=== PATIENT | female | born 1995 | race Asian ===

== ENCOUNTER 2019-08-08 16:15 | Emergency (ER) | payer OTHER ==
--- NOTE | 2019-08-08 16:36 | ED ---
HPI Febrile Illness - HPI Summary HPI Summary: 24 y/o female presented to [facility] for a febrile illness present after a return to the [place] after [place] vacation in [place]. She spent her vacation in multiple cities in [place] before spending time in [facility] from 07/16/19-07/28/19, where she was not in contact with anyone known to be sick. She returned on 07/29/19 to [facility] airport, after which she took a bus from [facility] to [place]. She then quarantined herself in her room from 07/29/19-08/01/19, during which time she experienced no symptoms. She went to classes from 08/02/19-08/05/19, and has recently been experiencing soft, yellow stools. She has also been experiencing chest congestion since yesterday that worsened today, and fever starting today of unknown temperature. She denies nausea, vomiting, diarrhea, chest pain, shortness of breath, rhinorrhea, sore throat, and abdominal pain. She is here today after a request from [place] to be seen in the ER. LNMP was 07/13/19. - History of Current Complaint Chief Complaint: EDFluSymptoms Time Seen by Provider: 08/08/19 16:19 Hx Obtained From: Patient Onset/Duration: Started Days Ago, Still Present Current Severity: None Pain Intensity: 0 Pain Scale Used: 0-10 Numeric Associated Signs and Symptoms: Other: - fever; soft, yellow stools; chest congestion - Allergy/Home Medications Allergies/Adverse Reactions: Allergies Allergy/AdvReac Type Severity Reaction Status Date / Time No Known Allergies Allergy Verified 08/08/19 16:28 Home Medications: Home Medications NK [No Home Medications Reported] 08/08/19 [History Confirmed 08/08/19] PMH/Surg Hx/FS Hx/Imm Hx Sensory History: Denies: Hx Legally Blind, Hx Deafness Opthamlomology History: Denies: Hx Legally Blind EENT History: Denies: Hx Deafness Infectious Disease History: No Infectious Disease History: Reports: Traveled Outside the [place] in Last 30 Days - [facility] - Family History Known Family History: Negative: Hypertension, Diabetes - Social History Alcohol Use: None Substance Use Type: Reports: None Smoking Status (MU): Never Smoked Tobacco Review of Systems Positive: Fever Negative: Sore Throat, Nasal Discharge Negative: Chest Pain Respiratory: Other - chest congestion Negative: Shortness Of Breath Positive: Other - soft stools. Negative: Abdominal Pain, Vomiting, Diarrhea, Nausea All Other Systems Reviewed And Are Negative: Yes Physical Exam - Summary Physical Exam Summary: VITAL SIGNS: Reviewed. GENERAL: Patient is a well-developed and nourished female who is lying comfortable in the stretcher. Patient is not in any acute respiratory distress. HEAD AND FACE: No signs of trauma. No ecchymosis, hematomas or skull depressions. No sinus tenderness. EYES: PERRLA, EOMI x 2, No injected conjunctiva, no nystagmus. EARS: Hearing grossly intact. Ear canals and tympanic membranes are within normal limits. MOUTH: Oropharynx within normal limits. NECK: Supple, trachea is midline, no adenopathy, no JVD, no carotid bruit, no c- spine tenderness, neck with full ROM. CHEST: Symmetric, no tenderness at palpation. LUNGS: Clear to auscultation bilaterally. No wheezing or crackles. CVS: Regular rate and rhythm, S1 and S2 present, no murmurs or gallops appreciated. ABDOMEN: Soft, non-tender. No signs of distention. No rebound, no guarding, and no masses palpated. Bowel sounds are normal. EXTREMITIES: FROM in all major joints, no edema, no cyanosis or clubbing. NEURO: Alert and oriented x 3. No acute neurological deficits. Speech is normal and follows commands. SKIN: Dry and warm. Triage Information Reviewed: Yes Vital Signs On Initial Exam: Initial Vitals Temp Pulse Resp BP Pulse Ox 99.6 F 96 16 145/93 99 08/08/19 16:21 08/08/19 16:21 08/08/19 16:21 08/08/19 16:21 08/08/19 16:21 Vital Signs Reviewed: Yes Procedures - Sedation Patient Received Moderate/Deep Sedation with Procedure: No Diagnostics - Vital Signs Vital Signs Temp Pulse Resp BP Pulse Ox 08/08/19 16: 99.6 F 96 16 145/93 99 - Laboratory Result Diagrams: 08/08/19 Unknown 08/08/19 Unknown Lab Statement: Any lab studies that have been ordered have been reviewed, and results considered in the medical decision making process. Course/Dx - Course Assessment/Plan: 24 y/o female presented to [facility] for a febrile illness present after a return to the after [place] vacation in [place]. She spent her vacation in multiple cities in [place] before spending time in [facility] from 07/16/19- 07/28/19, where she was not in contact with anyone known to be sick. She returned on 07/29/19 to [facility] airport, after which she took a bus from [facility] to [place]. She then quarantined herself in her room from 07/29/19-08/01/19, during which time she experienced no symptoms. She went to classes from 08/02/19-08/05/19 , and has recently been experiencing soft, yellow stools. She has also been experiencing chest congestion since yesterday that worsened today, and fever starting today of unknown temperature. She denies nausea, vomiting, diarrhea, chest pain, shortness of breath, rhinorrhea, sore throat, and abdominal pain. She is here today after a request from [place] to be seen in the ER. LNMP was 07/13/19. We discussed the case with Mary from health Department. Blood work, vital cultures recommended by [facility] were done. Blood work without any significant abnormalities. Influenza A and B is negative, RSV is negative. Chest x-ray was not performed since the patient doesnt have any cough, and lung exam is within normal limits. Since the patient does not appear to be ill or sick or toxic looking department recommends for the patient to be discharged back to [place]. Chrissy Hooper from [place] was contacted and she is setting up a piece which she is going to be quarantined and she will be receiving all care and meals at that place. The patient continues to be afebrile. She is hemodynamically stable alert oriented 3. Patient will be discharged back to [place]. - Diagnoses Provider Diagnoses: Chest congestion, Fever, URI, acute Discharge ED - Sign-Out/Discharge Documenting (check all that apply): Patient Departure - dc - Discharge Plan Condition: Stable Disposition: HOME Patient Education Materials: Fever in Adults (ED) Referrals: [facility] [Outside] Additional Instructions: FOLLOW UP WITH DR. HOOPER AND GARY DISCUSSED DURING YOUR VISIT. RETURN TO THE ED FOR ANY WORSENING OR NEW SYMPTOMS. - Billing Disposition and Condition Condition: STABLE Disposition: Home - Attestation Statements Document Initiated by Scribe: Yes Documenting Scribe: Patrick Gastelum Provider For Whom Quique is Documenting (Include Credential): Fredrick Montemayor MD Scribe Attestation: I, Patrick Gastelum, scribed for Fredrick Montemayor MD on 08/09/19 at 1338. Scribe Documentation Reviewed: Yes Provider Attestation: The documentation as recorded by the scribPatrick bean accurately reflects the service I personally performed and the decisions made by me, Fredrick Montemayor MD Status of Scribe Document: Viewed
[2019-08-08 17:28] LABS: ABS Lymphocytes 1.2 10^3/ul (1.0-4.8); ABS Monocytes 0.4 10^3/ul (0-0.8); ABS Neutrophils 5.4 10^3/ul (1.5-7.7); Eosinophil % 0.1 %; Hematocrit 44 % (35-47); Hemoglobin 15.4 g/dL (12.0-16.0); Lymphocyte % 17.1 %; Mean Corpuscular HGB Conc 35 g/dL (31-36); Mean Corpuscular Hemoglobin 32 pg (27-31); Mean Corpuscular Volume 92 fL (80-97); Mean Platelet Volume 6.7 fL (7.4-10.4); Platelet Count 276 10^3/uL (150-450); Red Cell Distribution Width 13 % (10-15)
[2019-08-08 17:45] LABS: Albumin 4.8 g/dL (3.2-5.2); Albumin/Globulin Ratio 1.5 (1-3); BUN/Creatinine Ratio 18.6 (8-20); Calcium 9.7 mg/dL (8.6-10.3); EGFR African American 124.4 (>60); EGFR Non-African American 102.8 (>60); Globulin 3.2 g/dL (2-4); Potassium 3.5 mmol/L (3.5-5.0); Total Bilirubin 0.9 mg/dL (0.2-1.0)
[2019-08-08 18:01] LABS: Influenza A Molecular Negative (Negative); Influenza B Molecular Negative (Negative); Resp Syncytial Virus Molecular Negative (Negative)
[2019-08-08 22:40] VITALS: BP 115/93
== END 2019-08-08 22:00 | disposition home or self-care (01) ==
LOC: ED 16:15
DX: J06.9 Acute upper respiratory infection, unspecified (principal); R09.89 Other specified symptoms and signs involving the circulatory and respiratory systems; R50.9 Fever, unspecified
CPT/HCPCS: 36415; 80053; 85025; 87040; 99284